=== PATIENT | male | born 1975 | race Caucasian/White ===

== ENCOUNTER 2017-08-11 01:09 | Emergency (ER) | payer MEDICAID ==
[~2017-08-11] VITALS: Ht 175.3 cm; Wt 75.9 kg
[~2017-08-11 01:09] MED LIST: ATOM40CA PO; DICY10CA88 PO
[2017-08-11] MEDS ORDERED: LORazepam 2 mg/ml vial IV ONE (01:40)
[2017-08-11 01:42] VITALS: BP 128/83
[2017-08-11 01:46] LABS: CLARITY,URINE CLEAR (Clear); COLOR,URINE YELLOW (Yellow); GLUCOSE, URINE NEGATIVE (Neg); KETONES,URINE 15 mg/dl (Neg); LEUKOCYTE ESTERASE ,URINE NEGATIVE (Neg); NITRITES, URINE NEGATIVE (Neg); OCCULT BLOOD,URINE NEGATIVE (Neg); PROTEIN,URINE TRACE mg/dl (Neg); UROBILINOGEN,URINE 0.2 E.U/dL (0.2-1.0)
[2017-08-11 01:48] LABS: UA COLLECTION TYPE CLN CATCH MIDSTREAM
[2017-08-11 01:54] LABS: BASOPHILS % (AUTO) 0.4 % (0-1); EOSINOPHILS # (AUTO) 0.1 X10'3 (0-0.9); EOSINOPHILS % (AUTO) 1.5 % (0-6); HEMATOCRIT 42.6 % (42.0-52.0); HEMOGLOBIN 14.1 g/dl (14.0-17.9); LYMPHOCYTES # (AUTO) 1.1 X10'3 (1.1-4.8); LYMPHOCYTES % (AUTO) 12.9 % (21-51); MEAN CORPUSCULAR HEMOGLOBIN 30.4 PG (27.0-31.0); MEAN PLATELET VOLUME 8.2 FL (7.4-10.4); MONOCYTES # (AUTO) 0.4 X10'3 (0-0.9); MONOCYTES % (AUTO) 4.6 % (2-12); NEUTROPHILS # (AUTO) 6.8 X10'3 (1.8-7.7); NEUTROPHILS % (AUTO) 80.6 % (42-75); PLATELET COUNT 216 X10'3 (140-440); RED BLOOD COUNT 4.63 X10'6 (4.70-6.10); RED CELL DISTRIBUTION WIDTH 12.5 % (11.5-14.5); WHITE BLOOD COUNT 8.4 X10'3 (4.5-11.0)
[2017-08-11 02:03] LABS: BACTERIA,URINE FEW /HPF (Neg); MUCUS STRANDS MANY /LPF (Neg); RBC,URINE 0-2 /HPF (0-2); SQUAMOUS EPITHELIAL CELL,UR NONE SEEN /LPF (FEW); WBC,URINE NONE SEEN /HPF (0-4)
[2017-08-11 02:06] LABS: ALANINE AMINOTRANSFERASE 24 U/L (12-78); ALBUMIN 3.9 G/DL (3.4-5.0); ALBUMIN/GLOBULIN RATIO 0.9 (1.1-1.5); ALKALINE PHOSPHATASE 51 IU/L (46-116); ANION GAP 8 (8-16); ASPARTATE AMINO TRANSFERASE 15 U/L (10-37); BILIRUBIN,TOTAL 0.4 MG/DL (0.1-1.0); BLOOD UREA NITROGEN 14 MG/DL (7-18); BUN/CREATININE RATIO 14.7 (5.4-32.0); CALCIUM 8.7 MG/DL (8.5-10.1); CHLORIDE 103 MMOL/L (99-107); CREATININE 0.95 MG/DL (0.60-1.10); GLUCOSE 123 MG/DL (70-104); POTASSIUM 3.9 MMOL/L (3.5-5.1); SODIUM 141 MMOL/L (135-145); TOTAL CARBON DIOXIDE 30.1 MMOL/L (24-32); TOTAL PROTEIN 8.2 G/DL (6.4-8.2); eGFR 87 ML/MIN
[2017-08-11 02:38] LABS: INR 1.1 INR; PROTHROMBIN TIME 11.1 SECONDS (9.0-12.0)
[2017-08-11] MEDS ORDERED: CHLO1CAP PO (02:48)
== END 2017-08-11 03:03 | disposition home or self-care (01) ==
LOC: ER 01:10
DX: R10.9 Unspecified abdominal pain (principal); K58.9 Irritable bowel syndrome, unspecified; F90.9 Attention-deficit hyperactivity disorder, unspecified type; Z79.899 Other long term (current) drug therapy
CPT/HCPCS: 36415; 80053; 81001; 85025; 85610; 96374; 99284; J2060

== ENCOUNTER 2020-08-08 22:06 | Emergency (ER) | payer MEDICAID ==
[~2020-08-08] VITALS: Ht 177.8 cm; Wt 74.5 kg
[~2020-08-08 22:06] MED LIST changes: +CHLO1CAP PO
[2020-08-08 22:46] LABS: BASOPHILS % (AUTO) 0.2 % (0-1); EOSINOPHILS # (AUTO) 0.1 X10'3 (0-0.9); EOSINOPHILS % (AUTO) 1.1 % (0-6); HEMATOCRIT 43.3 % (42.0-52.0); HEMOGLOBIN 14.4 g/dl (14.0-17.9); LYMPHOCYTES # (AUTO) 1.1 X10'3 (1.1-4.8); LYMPHOCYTES % (AUTO) 17.8 % (21-51); MEAN CORPUSCULAR HEMOGLOBIN 30.9 PG (27.0-31.0); MEAN CORPUSCULAR HGB CONC 33.3 g/dL (33.0-36.5); MEAN CORPUSCULAR VOLUME 92.8 FL (78-98); MEAN PLATELET VOLUME 7.4 FL (7.4-10.4); MONOCYTES # (AUTO) 0.3 X10'3 (0-0.9); MONOCYTES % (AUTO) 5.2 % (2-12); NEUTROPHILS # (AUTO) 4.7 X10'3 (1.8-7.7); NEUTROPHILS % (AUTO) 75.7 % (42-75); PLATELET COUNT 211 X10'3 (140-440); RED BLOOD COUNT 4.66 X10'6 (4.70-6.10); RED CELL DISTRIBUTION WIDTH 13.3 % (11.5-14.5); WHITE BLOOD COUNT 6.2 X10'3 (4.5-11.0)
[2020-08-08 22:50] LABS: CLARITY,URINE CLOUDY (Clear); COLOR,URINE YELLOW (Yellow); GLUCOSE, URINE NEGATIVE (Neg); KETONES,URINE NEGATIVE (Neg); LEUKOCYTE ESTERASE ,URINE NEGATIVE (Neg); NITRITES, URINE NEGATIVE (Neg); OCCULT BLOOD,URINE NEGATIVE (Neg); PH,URINE 7.5 (4.8-8.0); PROTEIN,URINE NEGATIVE (Neg); UROBILINOGEN,URINE 0.2 E.U/dL (0.2-1.0)
[2020-08-08 22:53] LABS: UA COLLECTION TYPE CLN CATCH MIDSTREAM
[2020-08-08 22:57] LABS: ALANINE AMINOTRANSFERASE 110 U/L (12-78); ALBUMIN 3.8 G/DL (3.4-5.0); ALBUMIN/GLOBULIN RATIO 0.8 (1.1-1.5); ALKALINE PHOSPHATASE 78 IU/L (46-116); ANION GAP 4 (8-16); ASPARTATE AMINO TRANSFERASE 150 U/L (10-37); BILIRUBIN,TOTAL 0.3 MG/DL (0.1-1.0); BLOOD UREA NITROGEN 17 MG/DL (7-18); CALCIUM 9.3 MG/DL (8.5-10.1); CHLORIDE 104 MMOL/L (99-107); GLUCOSE 125 MG/DL (70-104); LIPASE 152 U/L (73-393); POTASSIUM 4.2 MMOL/L (3.5-5.1); SODIUM 139 MMOL/L (135-145); TOTAL CARBON DIOXIDE 30.8 MMOL/L (24-32); TOTAL PROTEIN 8.6 G/DL (6.4-8.2); eGFR 81 ML/MIN
[2020-08-08 23:08] LABS: BACTERIA,URINE FEW /HPF (Neg); MUCUS STRANDS FEW /LPF (Neg); RBC,URINE 0-2 /HPF (0-2); SQUAMOUS EPITHELIAL CELL,UR FEW /LPF (FEW); WBC,URINE 0-4 /HPF (0-4)
[2020-08-08 23:09] LABS: AMORPHOUS PHOSPHATES 3+
[2020-08-08] MEDS ORDERED: chlordiazePOXIDE 25mg capsule PO ONE (23:45)
[2020-08-08] MEDS ORDERED: CLIDINIUM PO ONE (23:50)
[2020-08-08] MEDS ORDERED: ketorolac trometh inj. 60 MG/2 ML VIAL IM ONE (23:50)
[2020-08-08] MEDS ORDERED: ondansetron 4mg rapidly disintigrating tab PO ONE (23:50)
[2020-08-08] MEDS ORDERED: CHLORDIAZEPOXIDE PO ONE (23:50)
[2020-08-08] MEDS ORDERED: HYDR-3965 PO (23:52)
[2020-08-08] MEDS ORDERED: CHLO1CAP PO (23:52)
[2020-08-08] MEDS ORDERED: BISA-78 PO (23:52)
[2020-08-08] MEDS ORDERED: ONDA4TAB6 PO (23:52)
[2020-08-09 00:57] VITALS: BP 126/83
== END 2020-08-09 00:58 | disposition home or self-care (01) ==
LOC: ER 22:10
DX: R10.84 Generalized abdominal pain (principal); R11.0 Nausea; F41.9 Anxiety disorder, unspecified; Z98.890 Other specified postprocedural states; Z88.2 Allergy status to sulfonamides; Z79.899 Other long term (current) drug therapy
CPT/HCPCS: 36415; 80053; 81001; 83690; 85025; 96372; 99283; J1885

== ENCOUNTER 2021-05-14 11:04 | Emergency (ER) | payer MEDICAID ==
[~2021-05-14] VITALS: Ht 177.8 cm; Wt 75.0 kg
[~2021-05-14 11:04] MED LIST changes: +BISA-78 PO; +ONDA4TAB6 PO
[2021-05-14 11:18] VITALS: BP 123/80
[2021-05-15] MEDS ORDERED: ALBU8.5H17 IH (19:27)
== END 2021-05-14 15:25 | disposition left against medical advice (07) ==
LOC: ER 11:05
DX: K59.00 Constipation, unspecified (principal); Z53.21 Procedure and treatment not carried out due to patient leaving prior to being seen by health care provider

== ENCOUNTER 2021-05-14 19:18 | Inpatient (IN) | payer MEDICAID ==
[~2021-05-14] VITALS: Ht 177.8 cm; Wt 75.0 kg
[2021-05-14 20:40] LABS: BASOPHILS % (AUTO) 0.3 % (0-1); EOSINOPHILS # (AUTO) 0.1 X10'3 (0-0.9); EOSINOPHILS % (AUTO) 0.6 % (0-6); HEMATOCRIT 41.7 % (42.0-52.0); HEMOGLOBIN 14.4 g/dl (14.0-17.9); LYMPHOCYTES # (AUTO) 0.9 X10'3 (1.1-4.8); LYMPHOCYTES % (AUTO) 9.8 % (21-51); MEAN CORPUSCULAR HEMOGLOBIN 31.5 PG (27.0-31.0); MEAN CORPUSCULAR HGB CONC 34.4 g/dL (33.0-36.5); MEAN CORPUSCULAR VOLUME 91.6 FL (78-98); MEAN PLATELET VOLUME 7.8 FL (7.4-10.4); MONOCYTES # (AUTO) 0.7 X10'3 (0-0.9); MONOCYTES % (AUTO) 7.9 % (2-12); NEUTROPHILS # (AUTO) 7.1 X10'3 (1.8-7.7); NEUTROPHILS % (AUTO) 81.4 % (42-75); PLATELET COUNT 211 X10'3 (140-440); RED BLOOD COUNT 4.56 X10'6 (4.70-6.10); RED CELL DISTRIBUTION WIDTH 13.6 % (11.5-14.5); WHITE BLOOD COUNT 8.7 X10'3 (4.5-11.0)
[2021-05-14 20:45] LABS: CLARITY,URINE CLEAR (Clear); COLOR,URINE YELLOW (Yellow); GLUCOSE, URINE NEGATIVE (Neg); KETONES,URINE 40 mg/dl (Neg); LEUKOCYTE ESTERASE ,URINE NEGATIVE (Neg); NITRITES, URINE NEGATIVE (Neg); OCCULT BLOOD,URINE SMALL (Neg); PH,URINE 5.5 (4.8-8.0); PROTEIN,URINE NEGATIVE (Neg)
[2021-05-14 20:55] LABS: UA COLLECTION TYPE CLN CATCH MIDSTREAM
[2021-05-14 20:59] LABS: WBC,URINE 0-4 /HPF (0-4)
[2021-05-14 21:00] LABS: BACTERIA,URINE NONE SEEN /HPF (Neg); MUCUS STRANDS NONE SEEN /LPF (Neg); RBC,URINE 0-2 /HPF (0-2); SQUAMOUS EPITHELIAL CELL,UR FEW /LPF (FEW)
[2021-05-14 21:04] LABS: ALANINE AMINOTRANSFERASE 24 U/L (12-78); ALBUMIN 3.5 G/DL (3.4-5.0); ALBUMIN/GLOBULIN RATIO 0.7 (1.1-1.5); ALKALINE PHOSPHATASE 72 IU/L (46-116); ANION GAP 8 (8-16); ASPARTATE AMINO TRANSFERASE 18 U/L (10-37); BLOOD UREA NITROGEN 10 MG/DL (7-18); CALCIUM 9.2 MG/DL (8.5-10.1); CHLORIDE 99 MMOL/L (99-107); CREATININE 1.25 MG/DL (0.60-1.10); GLUCOSE 104 MG/DL (70-104); LIPASE < 50 U/L (73-393); POTASSIUM 4.1 MMOL/L (3.5-5.1); SODIUM 134 MMOL/L (135-145); TOTAL CARBON DIOXIDE 26.8 MMOL/L (24-32); TOTAL PROTEIN 8.8 G/DL (6.4-8.2); eGFR 63 ML/MIN
[2021-05-15] VITALS (11 sets, daily range): BP systolic 112–138; BP diastolic 70–88
[2021-05-15] MEDS ORDERED: morphine 4 MG/ML inj SYRINge IM ONE (02:10)
[2021-05-15] MEDS ORDERED: ondansetron 4mg rapidly disintigrating tab PO ONE (02:10)
[2021-05-15] MEDS ORDERED: piperacillin/tazo 4.5gm/100ml 100 ML IV SCH (04:34)
[2021-05-15] MEDS ORDERED: morphine 4 MG/ML inj SYRINge IV ONE (06:45)
--- NOTE | 2021-05-15 06:45 | NUR ---
NOTIFIED THE PROVIDER THAT PT IS C/O ABD PAIN AND NEED SOME PAIN MEDS,WAITING FOR THE HOSPITALIST . PER MD HE WILL ORDER PAIN MEDS FOR THE PT.
[2021-05-15] MEDS ORDERED: magnesium 4gm in 100ml NS 100 ML IV PRN (08:00)
[2021-05-15] MEDS ORDERED: potassium CL 10mEq/100ml bag 100 ML IV PRN (08:00)
[2021-05-15] MEDS ORDERED: acetaminophen 325mg tablet PO PRN ×2 (08:00)
[2021-05-15] MEDS: K and/or MAG REPLACEMENT MC SCH ×2 (08:00→20:00)
[2021-05-15] MEDS ORDERED: HYDROcodone/acetaminophen 5mg/325mg tablet PO PRN (08:00)
[2021-05-15] MEDS: piperacillin/tazo 3.375gm/50ml 50 ML IV SCH ×2 (08:00→17:19)
[2021-05-15] MEDS ORDERED: morphine 2 MG/ML inj. syringe IV PRN ×2 (08:00→14:10)
[2021-05-15] MEDS: heparin, porcine 5000 units/ml vial SQ SCH ×2 (08:00→21:00)
[2021-05-15] MEDS ORDERED: magnesium 2GM in 50ml NS 50 ML IV PRN (08:00)
[2021-05-15] MEDS ORDERED: potassium Cl 20 mEq SR tablet PO PRN ×2 (08:00)
[2021-05-15] MEDS ORDERED: magnesium Cl slow-release 64mg tablet PO PRN (08:00)
--- NOTE | 2021-05-15 08:31 | NUR ---
SPOKE TO DR WU ON [phone] TO VERIFY THE MEDS , PER NON ADMIN HEPARIN AND ZYOSIN PT IS STILL RECIVING ZYSOIN AND PT MIGHT GO FOR SX SIMI HEPARIN IS NOT NEEDED.
[2021-05-15] MEDS: normal saline 1000ml 1,000 ML IV SCH ×2 (08:54→20:59)
[2021-05-15] MEDS ORDERED: INDOCYANINE GREEN 25 MG/10 ML VIAL IV ONE (11:55)
[2021-05-15] MEDS ORDERED: BUPIVAcaine/PF 2.5 mg/ml (0.25%) 30ml vial ONE (11:58)
[2021-05-15] MEDS ORDERED: sevoflurane 250ml liquid IH ONE (13:27)
[2021-05-15] MEDS ORDERED: rocuronium 10mg/ml inj IV ONE (13:28)
[2021-05-15] MEDS ORDERED: propofol inj 20 ML IV ONE (13:28)
[2021-05-15] MEDS ORDERED: fentaNYL /PF 50mcg/ml 5ml ampule ONE (13:28)
[2021-05-15] MEDS ORDERED: midazolam 1 mg/ML 2ml injection ONE (13:28)
[2021-05-15] MEDS ORDERED: ondansetron/PF 4mg/2ml inj IV PRN ×2 (14:10→15:55)
[2021-05-15] MEDS ORDERED: morphine 4 MG/ML inj SYRINge IV PRN (14:10)
[2021-05-15] MEDS ORDERED: meperidine/PF 25mg/ml syringe IV PRN ×3 (14:10)
[2021-05-15] MEDS ORDERED: ringers solution, lacted 1,000 ML IV SCH (14:10)
[2021-05-15] MEDS ORDERED: proCHLORperazine 10 MG/2 ml inj IV PRN (14:10)
[2021-05-15] MEDS ORDERED: ondansetron/PF 4mg/2ml inj ONE (15:06)
[2021-05-15] MEDS ORDERED: dexamethasone sod phosphate 4mg/ml inj. ONE (15:07)
[2021-05-15] MEDS ORDERED: acetaminophen 1,000mg/100ml IV 100 ML IV ONE (15:23)
[2021-05-15] MEDS ORDERED: glycopyrrolate 0.2mg/ml inj ONE (15:34)
[2021-05-15] MEDS ORDERED: neostigmine methylsulfate 1 MG/ML 10ml vial ONE (15:34)
--- NOTE | 2021-05-15 16:00 | NUR ---
Received from OR via , accompanied by Anesthesiologist and report given by Anesthesiolgist. patient a&ox4,, denies pain, v/s wnl, csm intact,LAP SITES TO ABDOMEN cdi WITH TATI WITH MINIMAL OUTPUT.
[2021-05-15] MEDS: ondansetron/PF 4mg/2ml inj IV PRN ×2 (16:25→22:29)
--- NOTE | 2021-05-15 16:30 | NUR ---
Received from OR via , accompanied by Anesthesiologist and report given by Anesthesiolgist. patient a&ox4,, denies pain, v/s wnl, csm intact,LAP SITES TO ABDOMEN cdi. taken to [facility]B with all belongings hooked up to monitors in room and report given to rn who has taken over patient care.
--- NOTE | 2021-05-15 16:41 | NUR ---
Patient in room ED 12. I have received report from Ari MOFFETT and had the opportunity to ask questions and assume patient care.
[2021-05-15] MEDS ORDERED: metoclopramide 5 mg/ml inj IV PRN (17:50)
--- NOTE | 2021-05-15 18:37 | NUR ---
Problems reprioritized. Patient report given, questions answered & plan of care reviewed with Renee MOFFETT.
[2021-05-15] MEDS: morphine 2 MG/ML inj. syringe IV PRN (18:55)
[2021-05-15] MEDS ORDERED: ALBU8.5H17 IH (19:27)
[2021-05-15] MEDS ORDERED: temazepam 15mg capsule PO PRN (21:00)
[2021-05-15] MEDS: HYDROcodone/acetaminophen 10/325mg tab PO PRN (22:24)
[2021-05-16] VITALS: BP 118/77
[2021-05-16] MEDS ORDERED: LIDOcaine 2% 10ml TOPICAL JELLY (Urojet) TP ONE (01:05)
[2021-05-16] MEDS: piperacillin/tazo 3.375gm/50ml 50 ML IV SCH ×3 (01:58→16:00)
[2021-05-16] MEDS: docusate sod 100mg capsule PO PRN ×2 (01:59→09:23)
[2021-05-16 04:00] VITALS: BP 123/79
[2021-05-16] MEDS: normal saline 1000ml 1,000 ML IV SCH ×3 (05:45→20:57)
[2021-05-16 07:09] LABS: BASOPHILS % (AUTO) 0.1 % (0-1); EOSINOPHILS % (AUTO) 0 % (0-6); HEMATOCRIT 38.5 % (42.0-52.0); LYMPHOCYTES # (AUTO) 0.4 X10'3 (1.1-4.8); LYMPHOCYTES % (AUTO) 4.5 % (21-51); MEAN CORPUSCULAR HEMOGLOBIN 31.3 PG (27.0-31.0); MEAN CORPUSCULAR HGB CONC 33.8 g/dL (33.0-36.5); MEAN CORPUSCULAR VOLUME 92.8 FL (78-98); MEAN PLATELET VOLUME 7.9 FL (7.4-10.4); MONOCYTES # (AUTO) 0.6 X10'3 (0-0.9); MONOCYTES % (AUTO) 7.1 % (2-12); NEUTROPHILS % (AUTO) 88.3 % (42-75); PLATELET COUNT 214 X10'3 (140-440); RED BLOOD COUNT 4.15 X10'6 (4.70-6.10); RED CELL DISTRIBUTION WIDTH 13.5 % (11.5-14.5); WHITE BLOOD COUNT 9.1 X10'3 (4.5-11.0)
--- NOTE | 2021-05-16 07:16 | NUR ---
late entry 0210 pt ambulated to bathroom but was unable to void. bladder scan > 544ml's .dr torres was notified . order for lanza obtained . lanza was placed by Susanne patton using sterile technique
[2021-05-16 07:25] LABS: ALANINE AMINOTRANSFERASE 94 U/L (12-78); ALBUMIN 2.5 G/DL (3.4-5.0); ALBUMIN/GLOBULIN RATIO 0.5 (1.1-1.5); ALKALINE PHOSPHATASE 97 IU/L (46-116); ANION GAP 13 (8-16); ASPARTATE AMINO TRANSFERASE 84 U/L (10-37); BILIRUBIN,TOTAL 0.7 MG/DL (0.1-1.0); BLOOD UREA NITROGEN 13 MG/DL (7-18); BUN/CREATININE RATIO 11.2 (5.4-32.0); CALCIUM 8.3 MG/DL (8.5-10.1); CHLORIDE 101 MMOL/L (99-107); CREATININE 1.16 MG/DL (0.60-1.10); GLUCOSE 120 MG/DL (70-104); POTASSIUM 4.3 MMOL/L (3.5-5.1); SODIUM 136 MMOL/L (135-145); TOTAL CARBON DIOXIDE 22.1 MMOL/L (24-32); TOTAL PROTEIN 7.6 G/DL (6.4-8.2); eGFR 68 ML/MIN
[2021-05-16 08:00] VITALS: BP 127/83
[2021-05-16] MEDS: K and/or MAG REPLACEMENT MC SCH ×2 (08:00→20:00)
[2021-05-16] MEDS: heparin, porcine 5000 units/ml vial SQ SCH ×2 (08:00→20:52)
[2021-05-16] MEDS: morphine 2 MG/ML inj. syringe IV PRN ×3 (09:23→23:02)
[2021-05-16] MEDS: ondansetron/PF 4mg/2ml inj IV PRN (09:23)
[2021-05-16 11:00] VITALS: BP 131/93
[2021-05-16] MEDS: HYDROcodone/acetaminophen 10/325mg tab PO PRN (11:45)
[2021-05-16 20:00] VITALS: BP 135/90
[2021-05-16] MEDS ORDERED: ketorolac trometh. 30mg/ml inj. IM ONE (20:10)
[2021-05-16] MEDS: lactobacillus rhamnosus 10,000 MMU CELLS/CAPSULE PO SCH (20:51)
[2021-05-16] MEDS ORDERED: ketorolac trometh. 30mg/ml inj. IV ONE (20:55)
[2021-05-17] VITALS: BP 114/75
[2021-05-17] MEDS: piperacillin/tazo 3.375gm/50ml 50 ML IV SCH (00:06)
[2021-05-17] MEDS: HYDROcodone/acetaminophen 10/325mg tab PO PRN ×2 (04:23→14:55)
--- NOTE | 2021-05-17 05:52 | NUR ---
ATTEMPTING TO BLADDER TRAIN PT Q 2 -3 HRS OVERNIGHT . PT DID NOT FEEL URGE TO VOID . CHARGE NURSE BRIAN NOTIFIED
[2021-05-17 06:42] LABS: BASOPHILS % (AUTO) 0.2 % (0-1); EOSINOPHILS # (AUTO) 0.1 X10'3 (0-0.9); EOSINOPHILS % (AUTO) 1.7 % (0-6); HEMATOCRIT 33.7 % (42.0-52.0); HEMOGLOBIN 11.3 g/dl (14.0-17.9); LYMPHOCYTES # (AUTO) 0.9 X10'3 (1.1-4.8); LYMPHOCYTES % (AUTO) 17.5 % (21-51); MEAN CORPUSCULAR HGB CONC 33.5 g/dL (33.0-36.5); MEAN CORPUSCULAR VOLUME 92.4 FL (78-98); MEAN PLATELET VOLUME 7.5 FL (7.4-10.4); MONOCYTES # (AUTO) 0.5 X10'3 (0-0.9); MONOCYTES % (AUTO) 9.5 % (2-12); NEUTROPHILS # (AUTO) 3.8 X10'3 (1.8-7.7); NEUTROPHILS % (AUTO) 71.1 % (42-75); PLATELET COUNT 193 X10'3 (140-440); RED BLOOD COUNT 3.65 X10'6 (4.70-6.10); RED CELL DISTRIBUTION WIDTH 13.7 % (11.5-14.5); WHITE BLOOD COUNT 5.4 X10'3 (4.5-11.0)
[2021-05-17 06:48] LABS: ALANINE AMINOTRANSFERASE 60 U/L (12-78); ALBUMIN 2.1 G/DL (3.4-5.0); ALBUMIN/GLOBULIN RATIO 0.5 (1.1-1.5); ALKALINE PHOSPHATASE 74 IU/L (46-116); ANION GAP 7 (8-16); ASPARTATE AMINO TRANSFERASE 34 U/L (10-37); BILIRUBIN,TOTAL 0.5 MG/DL (0.1-1.0); BLOOD UREA NITROGEN 12 MG/DL (7-18); CHLORIDE 104 MMOL/L (99-107); CREATININE 0.92 MG/DL (0.60-1.10); GLUCOSE 93 MG/DL (70-104); POTASSIUM 3.6 MMOL/L (3.5-5.1); SODIUM 137 MMOL/L (135-145); TOTAL CARBON DIOXIDE 25.6 MMOL/L (24-32); TOTAL PROTEIN 6.5 G/DL (6.4-8.2); eGFR 89 ML/MIN
[2021-05-17] MEDS: K and/or MAG REPLACEMENT MC SCH (07:42)
[2021-05-17] MEDS: lactobacillus rhamnosus 10,000 MMU CELLS/CAPSULE PO SCH (09:32)
[2021-05-17] MEDS: heparin, porcine 5000 units/ml vial SQ SCH (09:33)
[2021-05-17] MEDS: docusate sod 100mg capsule PO PRN (09:33)
[2021-05-17] MEDS ORDERED: HYDR-3965 PO (09:52)
[2021-05-17] MEDS ORDERED: PANT40TA54 PO (09:52)
[2021-05-17] MEDS ORDERED: AMOX-419 PO (09:52)
[2021-05-17] MEDS ORDERED: LACT1CAP26 PO (09:52)
[2021-05-17] MEDS: morphine 2 MG/ML inj. syringe IV PRN (14:39)
== END 2021-05-17 16:00 | disposition home or self-care (01) | DRG 263 ==
LOC: ER 19:20 → ED HOLD 05-15 08:01 → SUR 3N 05-15 16:15
PROVIDERS: ADMIT Internal Medicine; ATTEND Family Medicine
PROC: 8E0W4CZ Robotic Assisted Procedure of Trunk Region, Percutaneous Endoscopic Approach (ICD-10-PCS; 2021-05-15)
PROC: 0FT44ZZ Resection of Gallbladder, Percutaneous Endoscopic Approach (ICD-10-PCS; principal; 2021-05-15 13:27)
DX: K80.00 Calculus of gallbladder with acute cholecystitis without obstruction (principal); E73.9 Lactose intolerance, unspecified; Z20.822 Contact with and (suspected) exposure to COVID-19; K82.8 Other specified diseases of gallbladder; F41.9 Anxiety disorder, unspecified; Z88.2 Allergy status to sulfonamides; Z79.899 Other long term (current) drug therapy
CPT/HCPCS: 36415; 74176; 76700; 80053; 81001; 83605; 83690; 85025; 85610; 86885; 86900; 86901; 87040; 87081; 87635; 97116; 97161; 97530; 99285; A4215; A4618; A6402; A7000; G0378; J0131; J1100; J1644; J1885; J2250; J2270; J2405; J2543; J2704; J2710; J2765; J3010; J3490; J7030; J7120